=== PATIENT | male | born 1950 | race Caucasian/White ===

== ENCOUNTER 2017-10-16 12:57 | Day surgery (SDC) | payer MEDICARE, OTHER ==
[~2017-10-16] VITALS: Ht 165.1 cm; Wt 108.6 kg
[~2017-10-16 12:57] MED LIST: COCAINE HCL 4% 2 ML SYR ONE; LIDOCAINE/EPI 1%-1:200,000 (XYLOCAINE) 10 ML VIAL ONE; MUPIROCIN 2% OINT 22 GM (BACTROBAN) TUBE ONE; PHENYLEPHRINE 0.5% NASAL SPR (NEO-SYNEPHRINE) REG ONE
[2017-10-16] MEDS ORDERED: COCAINE HCL 4% 2 ML SYR TOP ONE (13:00)
[2017-10-16] MEDS ORDERED: PHENYLEPHRINE 0.5% NASAL SPR (NEO-SYNEPHRINE) REG ONE (13:00)
[2017-10-16] MEDS ORDERED: MUPIROCIN 2% OINT 22 GM (BACTROBAN) TUBE TOP ONE (13:00)
[2017-10-16] MEDS ORDERED: LIDOCAINE/EPI 1%-1:200,000 (XYLOCAINE) 10 ML VIAL INJ ONE (13:00)
[2017-10-16] MEDS ORDERED: LISI-552 PO (13:03)
[2017-10-16] MEDS ORDERED: METO100T12 PO (13:03)
--- NOTE | 2017-10-16 13:20 | Progress Note-Pre Operative ---
Pre-Operative Progress Note H&P Reviewed The H&P was reviewed, patient examined and no changes noted. Date Seen by Provider: Oct 16, 2017 Time Seen by Provider: 13:20 Date H&P Reviewed: Oct 16, 2017 Time H&P Reviewed: 13:20 Pre-Operative Diagnosis: Left Posterior Epistaxis JYOTI HANNON MD Oct 16, 2017 1:20 pm
[2017-10-16] MEDS ORDERED: MIDAZOLAM 2 MG/2 ML (VERSED) VIAL ONE (13:22)
[2017-10-16] MEDS ORDERED: ceFAZolin 1,000 MG (ANCEF) VIAL ONE (13:23)
[2017-10-16] MEDS ORDERED: fentaNYL INJECTION 100 MCG/2 ML AMP ONE (13:23)
[2017-10-16] MEDS ORDERED: NS (IVPB) 50 ML ONE (13:23)
[2017-10-16 13:30] LABS: BASOPHILS % (AUTO) 0 % (0-10); EOSINOPHILS % (AUTO) 0 % (0-10); HEMATOCRIT 45 % (40-54); HEMOGLOBIN 16.2 G/DL (13.3-17.7); LYMPHOCYTES # (AUTO) 1.8 X 10^3 (1.0-4.0); LYMPHOCYTES % (AUTO) 16 % (12-44); MEAN CORPUSCULAR HEMOGLOBIN 32 PG (25-34); MEAN CORPUSCULAR HGB CONC 36 G/DL (32-36); MEAN CORPUSCULAR VOLUME 90 FL (80-99); MEAN PLATELET VOLUME 9.4 FL (7.4-10.4); MONOCYTES # (AUTO) 1.2 X 10^3 (0.0-1.0); MONOCYTES % (AUTO) 10 % (0-12); NEUTROPHILS # (AUTO) 8.5 X 10^3 (1.8-7.8); NEUTROPHILS % (AUTO) 74 % (42-75); PLATELET COUNT 212 10^3/uL (130-400); RED BLOOD COUNT 5.03 10^6/uL (4.35-5.85); RED CELL DISTRIBUTION WIDTH 12.7 % (10.0-14.5); WHITE BLOOD COUNT 11.6 10^3/uL (4.3-11.0)
[2017-10-16] MEDS ORDERED: LACTATED RINGERS 1,000 ML IV PRN (13:34)
[2017-10-16 13:40] VITALS: BP 153/93
[2017-10-16 13:46] LABS: BUN/CREATININE RATIO 19; CALCIUM 9.8 MG/DL (8.5-10.1); CARBON DIOXIDE 24 MMOL/L (21-32); CHLORIDE 93 MMOL/L (98-107); CREATININE SERUM 0.78 MG/DL (0.60-1.30); GFR ESTIMATED > 60; GLUCOSE 123 MG/DL (70-105); POTASSIUM 4.3 MMOL/L (3.6-5.0); SODIUM 131 MMOL/L (135-145)
[2017-10-16] MEDS ORDERED: ceFAZolin INJECTION 1,000 MG in NS (IVPB) 50 ML IV ONE (14:00)
[2017-10-16] MEDS ORDERED: SEVOFLURANE (ULTANE) 15 ML INHAL SOLN ONE (14:03)
[2017-10-16] MEDS ORDERED: LIDOCAINE PF 2% 5 ML (XYLOCAINE) VIAL ONE (14:03)
[2017-10-16] MEDS ORDERED: LIDOCAINE JELLY 2% (XYLOCAINE) 5 ML TUBE ONE (14:03)
[2017-10-16] MEDS ORDERED: SUCCINYLCHOLINE INJ 100 MG/5 ML SYR ONE (14:03)
[2017-10-16] MEDS ORDERED: proPOfol 200 MG/20 ML (DIPRIVAN) VIAL IV ONE (14:03)
[2017-10-16] MEDS ORDERED: PHENYLEPHRINE 100 MCG/ML 10 ML (ANESTHESIA) SYR ONE (14:03)
[2017-10-16] MEDS ORDERED: D5 1/2 NS W/KCL 20 MEQ/L 1,000 ML IV SCH (14:10)
--- NOTE | 2017-10-16 14:10 | Progress Note-Post Operative ---
Post-Operative Progess Note Surgeon (s)/Dye House Worker (s) Surgeon JYOTI HANNON MD Dye House Worker n/a Pre-Operative Diagnosis Left Posterior Epistaxis Post-Operative Diagnosis same Post-Op Procedure Note Date of Procedure: Oct 16, 2017 Name of Procedure Performed: Endoscopic Repair of Left Posterior Epistaxis Description & Findings Description and Findings: n/a Anesthesia Type get Estimated Blood Loss minimal Packing none. Specimen(s) collected/removed none JYOTI HANNON MD Oct 16, 2017 2:10 pm
[2017-10-16] MEDS ORDERED: HYDROcodone/APAP 5 MG/325 MG (LORTAB) TAB PO PRN (14:15)
[2017-10-16] MEDS ORDERED: ACETAMINOPHEN 325 MG TABLET/CAPLET (TYLENOL) PO PRN (14:15)
[2017-10-16] MEDS ORDERED: PHENYLEPHRINE 0.5% NASAL SPR (NEO-SYNEPHRINE) REG PRN (14:15)
[2017-10-16] MEDS ORDERED: morphine INJ 10 MG/ML 1ML (SYR OR VIAL) IVP PRN (14:30)
[2017-10-16] MEDS ORDERED: MEPERIDINE (DEMEROL) INJ 50 MG/ML IVP PRN (14:30)
[2017-10-16] MEDS ORDERED: ONDANSETRON 4 MG/2 ML (SDV) Z0FRAN IVP PRN (14:30)
[2017-10-16 15:10] VITALS: BP 127/80
[2017-10-16] MEDS ORDERED: HYDR-3812 PO (15:18)
[2017-10-16] MEDS ORDERED: CEPH-507 PO (15:18)
[2017-10-16 15:40] VITALS: BP 163/85
[2017-10-16 15:54] VITALS: BP 163/85
--- OUTSIDE RECORDS SUMMARY | 2017-10-18 14:12 | XMS REPORT | CCD ---
Author Author MELANIA RIVERA Organization Unknown Address [address] [facility] [address] [place] [id number] Care Team Providers Care Tool Analyst Name Role Phone MCRAE, ALKA DO Attphys MCRAE, ALKA DO Prisurg Vital Signs Unknown or Not Available. Allergies Allergy Code Allergy Type Reaction Status No Known Drug Allergies 0 No known drug allergies Active Procedures Unknown or Not Available. History of Immunizations Unknown or Not Available. Problems Unknown or Not Available. Results Unknown or Not Available. Active Medications Medications Administered During Visit Unknown or Not Available. Encounters Encounter Diagnosis Diagnosis Code Start Date Epistaxis [id number] 03/04/2016 Social History Smoking Status Code Start Date End Date Never smoker [id number] Patient Decision Aids Unknown or Not Available. Discharge Instructions You were admitted to [facility] on 03/04/2016 09:02 with a principal diagnosis of Epistaxis You were discharged from [facility] on 03/04/2016 10:29 Should you have any questions prior to discharge, please contact a member of your healthcare team. If you have left the hospital and have any questions, please contact your primary care physician. Chief Complaint and Reason For Visit Chief Complaint Date of Onset NOSE BLEED Function Status Unknown or Not Available. Referral/Transition of Care Unknown or Not Available.
--- OUTSIDE RECORDS SUMMARY | 2017-10-18 14:12 | XMS REPORT ---
Author Author Wilfred Anderson [facility] Address [address] [place], [place] [id number] Care Team Providers Care Asphalt Spreader Name Role Phone Wilfred Anderson PCP Unavailable Allergies and Adverse Reactions Name Reaction Notes NO KNOWN DRUG ALLERGIES Plan of Treatment Not available. Medications Active Name Start Date Estimated Completion Date SIG Comments Avodart 0.5 mg oral capsule take 1 capsule (0.5 mg) by oral route once daily for 30 days allopurinol 100 mg oral tablet take 1 tablet (100 mg) by oral route once daily for 30 days aspirin 81 mg oral tablet take 1 tablet (81 mg) by oral route once daily for 30 days Singulair 10 mg oral tablet take 1 tablet (10 mg) by oral route once daily in the evening allopurinol 100 mg oral tablet 2014 TAKE 1 TABLET BY MOUTH ONCE A DAY METOPROLOL TAB 100MG 07/20/2014 TAKE 1 TABLET BY MOUTH TWO TIMES A DAY promethazine-codeine 6.25-10 mg/5 mL oral syrup 10/15/2014 take 5 milliliters by oral route every 6 hours as needed, not to exceed 30 mL in 24 hours promethazine-codeine 6.25-10 mg/5 mL oral syrup 10/16/2014 TAKE 1 TEASPOON BY MOUTH EVERY 4 HOURS NEEDED FOR COUGH amlodipine 10 mg oral tablet 10/28/2014 10/23/2015 take 1 tablet (10 mg) by oral route once daily for 30 days Flonase 50 mcg/actuation nasal spray,suspension 10/28/2014 inhale 1 spray ( 50 mcg) in each nostril by intranasal route once daily Karey-D 12 Hour 60-120 mg oral tablet extended release 12 hr 11/12/2014 take 1 tablet by oral route 2 times per day lisinopril-hydrochlorothiazide 20-12.5 mg oral tablet 01/28/2015 TAKE 1 TABLET BY MOUTH ONCE A DAY cyclobenzaprine 10 mg oral tablet 03/04/2015 take 1 tablet by oral route 2 times a day as needed Rapaflo 8 mg oral capsule 04/28/2015 07/21/2016 take 1 capsule (8 mg) by oral route once daily with a meal for 90 days clotrimazole-betamethasone 1-0.05 % topical cream 05/19/2015 APPLY TO AFFECTED AREA AND SURROUNDING AREAS TWO TIMES A DAY (MORNING AND EVENING) Allopurinol 100MG Oral Tablet 06/28/2015 TAKE 1 TABLET BY MOUTH ONCE A DAY Metoprolol Tartrate 100MG Oral Tablet 09/06/2015 TAKE 1 TABLET BY MOUTH TWO TIMES A DAY cetirizine-pseudoephedrine 5-120 mg oral tablet extended release 12 hr 2015 TAKE 1 TABLET BY MOUTH EVERY 12 HOURS NEEDED Bactrim DS 800-160 mg oral tablet 10/18/2015 10/25/2015 take 1 tablet by oral route every 12 hours for 7 days Name Start Date Expiration Date SIG Comments Zithromax Z-Kevin 250 mg oral tablet 10/19/2009 10/24/2009 take 2 tablets (500 mg) by oral route once daily for 1 day then 1 tablet (250 mg) by oral route once daily for 4 days metoprolol tartrate 100 mg oral tablet take 1 tablet (100 mg) by oral route 2 times per day with meals for 30 days clotrimazole-betamethasone 1-0.05 % topical cream 05/08/2013 05/23/2013 APPLY TO AFFECTED AREA AND SURROUNDING AREAS TWO TIMES A DAY (MORNING AND EVENING) Edarbyclor 40-12.5 mg oral tablet 03/02/2014 09/28/2014 take 1 tablet by oral route once daily for 30 days lisinopril-hydrochlorothiazide 20-12.5 mg oral tablet 03/04/2014 02/27/2015 take 1 tablet by oral route once daily for 90 days Mir 5-20 mg oral tablet 10/19/2014 11/18/2014 take 1 tablet by oral route once daily for 30 days Naprosyn 500 mg oral tablet 03/04/2015 04/03/2015 take 1 tablet by oral route 2 times a day for 30 days Discontinued Name Start Date Discontinued Date SIG Comments amoxicillin 500 mg oral capsule 10/19/2014 take 1 cap. tid x 7 days Problem List Not available. Vital Signs Date Time BP-Sys(mm[Hg] BP-Taylor(mm[Hg]) HR(bpm) RR(rpm) Temp WT HT HC BMI BSA BMI Percentile O2 Sat(%) 10/18/2015 8:19:00 AM 156 mmHg 100 mmHg 81 bpm 18 rpm 98.6 F 265 lbs 65 in 44.10 kg/m2 2.35 m2 93 % 10/28/2014 8:31:00 AM 156 mmHg 100 mmHg 68 bpm 18 rpm 98.6 F 259 lbs 65 in 43.0994 kg/m 2.3212 m 10/19/2014 4:45:00 PM 170 mmHg 96 mmHg 10/19/2014 4:36:00 PM 220 mmHg 120 mmHg 78 bpm 18 rpm 9.5 F 267 lbs 65 in 44.4307 kg/m 2.36 m2 02/23/2010 8:11:00 AM 168 mmHg 94 mmHg 74 bpm 20 rpm 98 F 259 lbs Social History Not available. History of Procedures Date Ordered Description Order Status 02/23/2010 12:00 AM ELECTROCARDIOGRAM COMPLETE Reviewed Results Summary Not available. History Of Immunizations Not available. History of Past Illness Name Date of Onset Comments Hypertension Feb 23 2010 8:15AM Osteoarthritis Feb 23 2010 8:15AM Preoperative Examination Feb 23 2010 8:15AM Hypertension Oct 19 2014 4:38PM Essential Hypertension Oct 28 2014 8:38AM Allergic rhinitis Oct 28 2014 8:38AM Hypertension Oct 18 2015 8:26AM Acute Right Upper Cellulitis and abscess Oct 18 2015 8:26AM Payers Insurance Name Company Name Plan Name Plan Number Policy Number Policy Group Number Start Date [facility] [id number] Tuesday, 2010 History of Encounters Visit Date Visit Type Provider 10/18/2015 Office visit Wilfred Anderson MD 10/28/2014 Office visit Wilfred Anderson MD 10/19/2014 Office visit Wilfred Anderson MD 05/02/2010 Laboratory Elizabeth Fitzpatrick MD 03/22/2010 [facility] Johnny Rinaldi PA-C 03/21/2010 [facility] Johnny Rinaldi PA-C 02/23/2010 Laboratory Sophie Snyder MD 02/23/2010 Office visit Wilfred Anderson MD
--- OUTSIDE RECORDS SUMMARY | 2017-10-18 14:12 | XMS REPORT ---
Author Author Wilfred Anderson [facility] Address [address] [place] [id number] Care Team Providers Care Shipping And Receiving Associate Name Role Phone Wilfred Anderson PCP Wilfred Anderson PreferredProvider Allergies and Adverse Reactions Name Reaction Notes NO KNOWN DRUG ALLERGIES Plan of Treatment Not available. Medications Active Name Start Date Estimated Completion Date SIG Comments allopurinol 100 mg oral tablet take 1 tablet (100 mg) by oral route once daily for 30 days allopurinol 100 mg oral tablet 2014 TAKE 1 TABLET BY MOUTH ONCE A DAY promethazine-codeine 6.25-10 mg/5 mL oral syrup 10/15/2014 take 5 milliliters by oral route every 6 hours as needed, not to exceed 30 mL in 24 hours clotrimazole-betamethasone 1-0.05 % topical cream 05/19/2015 APPLY TO AFFECTED AREA AND SURROUNDING AREAS TWO TIMES A DAY (MORNING AND EVENING) Allopurinol 100MG Oral Tablet 06/28/2015 TAKE 1 TABLET BY MOUTH ONCE A DAY Metoprolol Tartrate 100MG Oral Tablet 09/06/2015 TAKE 1 TABLET BY MOUTH TWO TIMES A DAY amlodipine 10 mg oral tablet 11/23/2015 take 1 tablet (10 mg) by oral route once daily for 30 days Allopurinol 100MG Oral Tablet 07/11/2016 TAKE 1 TABLET BY MOUTH ONCE A DAY Metoprolol Tartrate 100MG Oral Tablet 09/05/2016 TAKE 1 TABLET BY MOUTH TWO TIMES A DAY Rapaflo 8 mg oral capsule 09/27/2016 TAKE 1 CAPSULE BY MOUTH ONCE A DAY WITH A MEAL amlodipine 10 mg oral tablet 02/12/2017 TAKE 1 TABLET BY MOUTH ONCE A DAY cetirizine-pseudoephedrine 5-120 mg oral tablet extended release 12 hr 2016 TAKE 1 TABLET BY MOUTH EVERY 12 HOURS NEEDED Allopurinol 100MG Oral Tablet 08/06/2017 08/01/2018 TAKE 1 TABLET BY MOUTH ONCE A DAY lisinopril-hydrochlorothiazide 20-12.5 mg oral tablet 09/24/2017 take 2 tablets by oral route daily Name Start Date Expiration Date SIG Comments [...] oral route once daily for 30 days Mir 5-20 mg oral tablet 10/19/2014 11/18/2014 take 1 tablet by oral route once daily for 30 days amlodipine 10 mg oral tablet 10/28/2014 10/23/2015 take 1 tablet (10 mg) by oral route once daily for 30 days Naprosyn 500 mg oral tablet 03/04/2015 04/03/2015 take 1 tablet by oral route 2 times a day for 30 days Rapaflo 8 mg oral capsule 04/28/2015 07/21/2016 take 1 capsule (8 mg) by oral route once daily with a meal for 90 days Bactrim DS 800-160 mg oral tablet 10/18/2015 10/25/2015 take 1 tablet by oral route every 12 hours for 7 days Discontinued Name Start Date Discontinued Date SIG Comments Avodart 0.5 mg oral capsule 09/24/2017 take 1 capsule (0.5 mg) by oral route once daily for 30 days aspirin 81 mg oral tablet 09/24/2017 take 1 tablet (81 mg) by oral route once daily for 30 days Singulair 10 mg oral tablet 09/24/2017 take 1 tablet (10 mg) by oral route once daily in the evening amoxicillin 500 mg oral capsule 10/19/2014 take 1 cap. tid x 7 days METOPROLOL TAB 100MG 07/20/2014 09/24/2017 TAKE 1 TABLET BY MOUTH TWO TIMES A DAY Flonase 50 mcg/actuation nasal spray,suspension 10/28/2014 09/24/2017 inhale 1 spray (50 mcg) in each nostril by intranasal route once daily Karey-D 12 Hour 60-120 mg oral tablet extended release 12 hr 11/12/201409/24 take 1 tablet by oral route 2 times per day cyclobenzaprine 10 mg oral tablet 03/04/2015 09/24/2017 take 1 tablet by oral route 2 times a day as needed Cialis 5 mg oral tablet 06/12/2016 06/16/2016 take 1 tablet (5 mg) by oral route once daily for 30 days Cialis 2.5 mg oral tablet 09/24/2017 take 1 tablet (2.5 mg) by oral route once daily promethazine-codeine 6.25-10 mg/5 mL oral syrup 06/28/2016 09/24/2017 take 5 milliliters by oral route every 6 hours as needed, not to exceed 30 mL in 24 hours Problem List Not available. Vital Signs Date Time BP-Sys(mm[Hg] BP-Taylor(mm[Hg]) HR(bpm) RR(rpm) Temp WT HT HC BMI BSA BMI Percentile O2 Sat(%) 09/24/2017 11:13:00 AM 160 mmHg 90 mmHg 67 bpm 73 rpm 98.3 F 257 lbs 65 in 42.77 kg/m2 2.31 m2 94 % 10/18/2015 8:19:00 AM 156 mmHg 100 mmHg 81 bpm 18 rpm 98.6 F 265 lbs 65 in 44.0979 kg/m 2.3479 m 93 % 10/28/2014 8:31:00 AM 156 mmHg 100 mmHg 68 bpm 18 rpm 98.6 F 259 lbs 65 in 43.10 kg/m2 2.32 m2 10/19/2014 4:45:00 PM 170 mmHg 96 mmHg 10/19/2014 4:36:00 PM 220 mmHg 120 mmHg 78 bpm 18 rpm 9.5 F 267 lbs 65 in 44.43 kg/m2 2.36 m2 02/23/2010 8:11:00 AM 168 mmHg 94 mmHg 74 bpm 20 rpm 98 F 259 lbs Social History Name Description Comments Tobacco Former smoker History of Procedures Date Ordered Description Order Status 02/23/2010 12:00 AM ELECTROCARDIOGRAM COMPLETE Reviewed Results Summary Not available. History Of Immunizations Not available. History of Past Illness Name Date of Onset Comments Hypertension Feb 23 2010 8:15AM Osteoarthritis Feb 23 2010 8:15AM Preoperative Examination Feb 23 2010 8:15AM Erectile dysfunction Hypertension Hypertension Oct 19 2014 4:38PM Essential Hypertension Oct 28 2014 8:38AM Allergic rhinitis Oct 28 2014 8:38AM Hypertension Oct 18 2015 8:26AM Acute Right Upper Cellulitis and abscess Oct 18 2015 8:26AM Hypertension Sep 24 2017 11:26AM Epistaxis Sep 24 2017 11:26AM Payers Insurance Name Company Name Plan Name Plan Number Policy Number Policy Group Number Start Date Medicare RHC Medicare RHC [id number] N/A [employer] company [id number] N/A Medicare Part A Medicare - Lab/Xray [id number] N/A BCBS [facility]cbs [id number] [id number] Tuesday, February 23, 2010 History of Encounters Visit Date Visit Type Provider 09/24/2017 Office visit Wilfred Anderson MD 10/18/2015 Office visit Wilfred Anderson MD 10/28/2014 Office visit Wilfred Anderson MD 10/19/2014 Office visit Wilfred Anderson MD 05/02/2010 Laboratory Elizabeth Fitzpatrick MD 03/22/2010 [facility] Johnny Rinaldi PA-C 03/21/2010 [facility] Johnny Rinaldi PA-C 02/23/2010 Laboratory Sophie Snyder MD 02/23/2010 Office visit Wilfred Anderson MD
--- OUTSIDE RECORDS SUMMARY | 2017-10-18 14:12 | XMS REPORT ---
Author Author Wilfred Anderson [facility] Address [address] [place] [phone] Care Team Providers Care Director Of Labor And Delivery Name Role Phone Wilfred Anderson PCP Wilfred [...] take 2 tablets by oral route daily metoprolol tartrate 100 mg oral tablet 09/25/2017 02/22/2018 TAKE 1 TABLET BY MOUTH TWO TIMES A DAY Name Start Date Expiration Date SIG Comments Zithromax Z-Kevin 250 mg oral tablet 10/19/2009 10/24/2009 take 2 tablets (500 mg) by oral route once daily for 1 day then 1 tablet (250 mg) by oral route once daily for 4 days clotrimazole-betamethasone 1-0.05 % topical cream 05/08/2013 [...] each nostril by intranasal route once daily Akrey-D 12 Hour 60-120 mg oral tablet extended [...] Number Start Date Medicare RHC Medicare RHC [id number] N/A [employer] company [id number] N/A Medicare Part A Medicare - Lab/Xray [id number] N/A BCBS Bcbs [facility] [id number] Tuesday, February 23, 2010 History of Encounters Visit Date Visit Type Provider 09/24/2017 Office visit Wilfred Anderson MD 10/18/2015 Office visit Wilfred Anderson MD 10/28/2014 Office visit Wilfred Anderson MD 10/19/2014 Office visit Wilfred Anderson MD 05/02/2010 Laboratory Elizabeth Fitzpatrick MD 03/22/2010 [facility] Johnny Rinaldi PA-C 03/21/2010 [facility] Johnny Rinaldi PA-C 02/23/2010 Laboratory Sophie Snyder MD 02/23/2010 Office visit Wilfred Anderson MD
--- OUTSIDE RECORDS SUMMARY | 2017-10-18 14:13 | XMS REPORT | Continuity of Care Document ---
Author Author [facility] Address Unknown Phone Unavailable Allergies There is no data. Medications There is no data. Problems There is no data. Procedures There is no data. Results There is no data. Encounters ACCT No. Visit Date/Time Discharge Status Pt. Type Provider Facility Loc./Unit Complaint [id number] 09/24/2017 11:29:47 09/24/2017 23:59:59 [facility] Outpatient Wilfred Anderson [id number] 10/18/2015 09:10:22 10/18/2015 23:59:59 [facility] Outpatient Wilfred Anderson
--- OUTSIDE RECORDS SUMMARY | 2017-10-18 14:13 | XMS REPORT ---
Author Author Wilfred Anderson [facility] Address [address] [place] [phone] Care Team Providers Care Tubular Riveter Name Role Phone Wilfred Anderson PCP Wilfred Anderson PreferredProvider Allergies and Adverse Reactions Name Reaction Notes NO KNOWN DRUG ALLERGIES Plan of Treatment Planned Activity Comments Planned Date Planned Time Plan/Goal CBC with Auto 10/09/2017 12:00 AM CMP (comprehensive metabolic panel) 10/09/2017 12:00 AM Medications Active Name Start Date Estimated Completion [...] 2017 11:26AM Epistaxis Sep 24 2017 11:26AM Epistaxis, recurrent Oct 09 2017 4:34PM Payers Insurance Name Company Name Plan Name Plan Number Policy Number Policy Group Number Start Date Medicare RHC Medicare RHC [id number] N/A [employer] company [id number] N/A Medicare Part A Medicare - Lab/Xray [id number] N/A BCBS Bcbs [facility] [id number] Tuesday, February 23, 2010 History of Encounters Visit Date Visit Type Provider 09/24/2017 Office visit Wilfred Anderson MD 10/18/2015 Office visit Wilfred Anderson MD 10/28/2014 Office visit Wilfred Anderson MD 10/19/2014 Office visit Wilfred Anderson MD 05/02/2010 Laboratory Elizabeth Fitzpatrick MD 03/22/2010 [facility] Johnny Rinaldi PA-C 03/21/2010 [facility] Johnny Rinaldi PA-C 02/23/2010 Laboratory Sophie Snyder MD 02/23/2010 Office visit Wilfred Anderson MD
== END 2017-10-16 15:50 | disposition home or self-care (01) ==
LOC: SDC 12:57
PROVIDERS: ATTEND Otolaryngology Otolaryngology/Facial Plastic Surgery
DX: R04.0 Epistaxis (principal); I10 Essential (primary) hypertension; G47.33 Obstructive sleep apnea (adult) (pediatric); Z79.899 Other long term (current) drug therapy
CPT/HCPCS: 36415; 80048; 85025; 87081; 93005